=== PATIENT | male | born 2000 | race Caucasian/White ===

== ENCOUNTER → 2023-10-30 | Outpatient (CLI) | payer SELFPAY ==
--- NOTE | 2023-10-30 14:14 | CT_ITS ---
INDICATION: pain -- please include T7-L4 EXAMINATION: CT THORACIC SPINE - CT Spine Thoracic W/O Contrast Injection TECHNIQUE: Helically acquired images were obtained of the thoracic spine. 2D reformats were reviewed. A radiation dose optimization technique was used for this scan. IV Contrast dosage and agent: None. RADIATION DOSAGE (If Supplied By Facility): CTDIvol = ( 18.42 ) mGy, DLP = ( 1200.37 ) mGycm COMPARISON: Prior study dated: 10/07/2023 FINDINGS: VERTEBRAE: Moderate to severe comminuted displaced fracture of T12 vertebra with retropulsion significantly indenting the thecal sac. No new fracture is definitely identified. Mild depression of the superior endplate of T8 and T11. VERTEBRAL ALIGNMENT: Fusion of the lower thoracic and lumbar spine extending from the level of T7 to the level of L4 with bilateral pedicle screws at the levels of T7 and T8 and from the level of L1 to the level of L4. There is straightening of the thoracic spine. DISCS: Disc heights are otherwise preserved. VISUALIZED THORAX: Visualized thoracic aorta is nondilated. Lung mathur are clear. CT/Spine Thoracic without Contras IMPRESSION: 1. Status post fusion of the thoracic and lumbar spine as described above. 2. Moderate to severe comminuted displaced compression fracture of T12 vertebra with retropulsion narrowing the thecal sac. 3. Artifacts limiting the evaluation of the soft tissues. Electronically Signed: Wilmer Burch MD at 10:58 [facility] ,
--- NOTE | 2023-10-30 14:16 | MRI_ITS ---
STUDY: MRI LUMBAR SPINE WITHOUT CONTRAST REASON FOR EXAM: Male, 23 years old. Pain. Nonambulatory since 11/30/2021. TECHNIQUE: Standardized fat and water weighted pulse sequences were obtained in the sagittal and axial planes. COMPARISON: CT thoracic spine without contrast 10/30/2023. No prior MRI lumbar spine or CT lumbar spine for comparison. FINDINGS: T11-T12: (Sagittal only). Normal T11 inferior endplate. Grade 2 anterior subluxation of T11 on T12. Fracture comminution of the T12 vertebral body and postsurgical absence of the T11 and T12 spinous processes and lamina. Metallic rods in the thoracic spine and L1 pedicular screws causing signal distortion artifacts. The conus medullaris is not visible. T12-L1: (Sagittal only). Normal L1 superior endplate. Anterior wedge compression fracture comminution of the T12 vertebral body is better seen on CT. There is persistent bony edema of the T12 vertebral body. Normal disc height, hydration and morphology. Capacious central canal and bilateral intervertebral neural foramina. Normal lumbar lordosis. There is no substantial scoliosis. No visible conus medullaris. L1-2: Normal endplates. Normal disc height, hydration and morphology. Pedicular screws and rods causing signal distortion artifacts. Postsurgical absence of the L1 spinous process and lamina. Capacious central canal. Normal bilateral lateral recesses. Normal bilateral intervertebral neural foramina. L2-3: Normal endplates. Normal disc height, hydration and morphology. Normal bilateral facet joints. Normal central canal and bilateral lateral recesses. Normal bilateral intervertebral neural foramina. L3-4: Normal endplates. Normal disc height, hydration and morphology. Normal bilateral facet joints. Normal central canal and bilateral lateral recesses. Normal bilateral intervertebral neural foramina. L4-5: Normal endplates. Normal disc height, hydration and morphology. Normal bilateral facet joints. Normal central canal and bilateral lateral recesses. Normal bilateral intervertebral neural foramina. L5-S1: Normal endplates. Normal disc height, hydration and morphology. Normal facet joints. Termination of the thecal sac at the disc space level rather than spinal stenosis. Normal bilateral lateral recesses. Normal bilateral intervertebral neural foramina. Normal visualized sacral ala. Normal visualized paraspinous soft tissue structures. MRI/Spine Lumbar (Routine) IMPRESSION: 1. Old fracture comminution of the T12 vertebral body but there is persistent edema of the vertebral marrow. MRI with intravenous contrast and without fat suppression will be helpful for further clarification if osteomyelitis is a clinical consideration. 2. Grade 1 traumatic anterolisthesis of T11 on T12. 3. Nonvisualization of the conus medullaris may be due to severe posttraumatic spinal cord atrophy. Comparison with preoperative MRI of the thoracic spine and lumbar spine will help clarify if available. 4. Otherwise normal MRI of the lumbar spine without contrast. Electronically Signed: Tobi Bueno MD at 15:02 EST ,
--- NOTE | 2023-10-30 14:16 | MRI_ITS ---
STUDY: MRI THORACIC SPINE WITHOUT CONTRAST REASON FOR EXAM: Male, 23 years old. Pain -- TECHNIQUE: Standardized fat and water weighted pulse sequences were obtained in the sagittal and axial planes. COMPARISON: None. FINDINGS: Normal kyphosis of the thoracic spine. There is no substantial scoliosis. There is postoperative change. There is susceptibility artifact associated with fusion from T8 through the lumbar spine including pedicle screws at T8, T9, T10, and T11 T1-2, T2-3, T3-4, T4-5: Normal endplates. Normal disc hydration, heights and morphology of the corresponding intervertebral discs. Normal central canal and intervertebral neural foramina at the corresponding levels. T5-6: Right paracentral disc protrusion. No canal stenosis. Neural foramina are patent., T6-7: Right paracentral disc protrusion. No canal stenosis. Neural foramina are patent, T7-8, T8-9, T9-10, T10-11, T11-12: Posterior fusion. No canal stenosis. Neural foramina are patent. The thoracic cord ends abruptly at T11 with possible cystic space at the T12 level. There is no thoracic fracture. There is L1 compression fracture extending beyond the [id number]. There is retropulsion of L1 fragment. There is postoperative change in the posterior paraspinal soft tissues. MRI/Spine Thoracic (Routine) IMPRESSION: L1 compression fracture. Fusion from the lower thoracic spine to the lumbar spine. Abnormal thoracic cord terminating at the T11 level with possible cystic region at T12 suspicious for traumatic injury and/or partial transection. Artifact associated with hardware distorts appearance and limits detail. Electronically Signed: Robert Alaniz MD at 12:20 EST ,
== END | disposition home or self-care (01) ==
LOC: MRI 14:12
PROVIDERS: PCP Physician Assistant; Referring Provider Orthopaedic Surgery Orthopaedic Surgery of the Spine; Visit Provider Orthopaedic Surgery Orthopaedic Surgery of the Spine
DX: G82.20 Paraplegia, unspecified (principal); Z98.1 Arthrodesis status
CPT/HCPCS: 72128; 72146; 72148